=== PATIENT | male | born 1985 ===

== ENCOUNTER 2021-01-01 07:05 | Day surgery (SDC) | payer OTHER ==
[~2021-01-01 07:05] MED LIST: AVAPRO75 MG; METOPROLOL SUCC50 MG
== END 2021-01-01 17:05 | disposition home or self-care (01) ==
LOC: CIR.AMB 07:05
PROVIDERS: ATTEND Orthopaedic Surgery Hand Surgery
DX: M66.821 Spontaneous rupture of other tendons, right upper arm (principal); Z20.822 Contact with and (suspected) exposure to COVID-19